=== PATIENT | female | born 2000 | race Caucasian/White ===

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

== ENCOUNTER 2021-06-15 21:29 | Emergency (ER) | payer SELFPAY ==
[2021-06-15 21:47] VITALS: BP 123/69; PULSE 91
--- NOTE | 2021-06-15 21:50 | EDM.PDOC ---
ED HPI GENERAL MEDICAL PROBLEM - General Stated Complaint: NAUSEA, PAIN WITH URINATION Time Seen by Provider: 06/15/21 21:44 Source of Information: Reports: Patient History Limitations: Reports: No Limitations - History of Present Illness INITIAL COMMENTS - FREE TEXT/NARRATIVE: 20-year-old female presenting to the ED for evaluation of dysuria. Patient was seen and treated last week for UTI and went through a 7-day course of antibiotics. She had 3 days where she was symptom-free but then started to develop symptoms 48 hours ago. She now has urgency, frequency, and burning with urination. The patient was treated with nitrofurantoin on a 7-day course. They did not do a urine culture. He denies any fever or chills but has had nausea without vomiting. She denies any flank pain. She has had no diarrhea. There is no change in appetite. There is no loss of her taste or smell. Abdomen Pain Score (Numeric/FACES): 4 - Related Data Allergies Allergy/AdvReac Type Severity Reaction Status Date / Time No Known Allergies Allergy Verified 01/18/17 21:40 Home Meds: Home Meds norgestimate-ethinyl estradioL [Sprintec] 1 tab PO DAILY 06/15/21 [History] Past Medical History - Past Surgical History HEENT Surgical History: Reports: Tonsillectomy ED ROS GENERAL - Review of Systems Review Of Systems: See Below Constitutional: Reports: Chills HEENT: Reports: No Symptoms Respiratory: Reports: No Symptoms Cardiovascular: Reports: No Symptoms Endocrine: Reports: No Symptoms GI/Abdominal: Reports: Nausea. Denies: Vomiting : Reports: Dysuria, Frequency, Urgency. Denies: Flank Pain Musculoskeletal: Reports: No Symptoms Skin: Reports: No Symptoms Neurological: Reports: No Symptoms Psychiatric: Reports: No Symptoms Hematologic/Lymphatic: Reports: No Symptoms Immunologic: Reports: No Symptoms ED EXAM, RENAL/ - Physical Exam Exam: See Below Exam Limited By: No Limitations General Appearance: Alert, No Apparent Distress Eye Exam: Bilateral Eye: EOMI, PERRL Throat/Mouth: Normal Inspection, Normal Oropharynx, Normal Voice, No Airway Compromise Head: Atraumatic, Normocephalic Neck: Normal Inspection, Supple. No: Lymphadenopathy (R), Lymphadenopathy (L) Respiratory/Chest: No Respiratory Distress, Lungs Clear, Normal Breath Sounds Cardiovascular: Normal Peripheral Pulses, Regular Rate, Rhythm, No Murmur GI/Abdominal: Normal Bowel Sounds, Soft, Non-Tender Back Exam: No: CVA Tenderness (R), CVA Tenderness (L) Extremities: Normal Inspection Neurological: Alert, Oriented, Normal Cognition, No Motor/Sensory Deficits Psychiatric: Normal Affect, Normal Mood Skin Exam: Warm, Dry Course - Vital Signs Last Recorded V/S: Last Vital Signs Temp 37.1 C 06/15/21 21:46 Pulse 91 06/15/21 21:46 Resp 16 06/15/21 21:46 BP 123/69 06/15/21 21:46 Pulse Ox 100 06/15/21 21:46 - Orders/Labs/Meds Orders: Active Orders 24 hr Category Date Time Status CULTURE URINE [RM] Stat Lab 06/15/21 21:57 Ordered Labs: Laboratory Tests 06/15/21 Range/Units 21:49 Urine Color Yellow (YELLOW) Urine Appearance Cloudy A (CLEAR) Urine pH 6.0 (5.0-8.0) Ur Specific [place] >= 1.030 (1.008-1.030) Urine Protein >=300 H (NEGATIVE) mg/dL Urine Glucose (UA) Negative (NEGATIVE) mg/dL Urine Ketones Trace H (NEGATIVE) mg/dL Urine Occult Blood Moderate H (NEGATIVE) Urine Nitrite Negative (NEGATIVE) Urine Bilirubin Negative (NEGATIVE) Urine Urobilinogen 0.2 (0.2-1.0) EU/dL Ur Leukocyte Esterase Moderate H (NEGATIVE) Urine RBC 5-10 H (0-5) Urine WBC Semi-packed H (0-5) Ur Epithelial Cells Moderate Amorphous Sediment Not seen Urine Bacteria Many Urine Mucus Not seen - Re-Assessments/Exams Free Text/Narrative Re-Assessment/Exam: 06/15/21 21:59 I reviewed the urinalysis showing usha pyuria. Urine culture has been added to ensure that we have her on the right antibiotic. As she was recently on nitrofurantoin we will probably go with cephalexin 500 mg twice daily for 10 days as she had been on a 7-day course of the nitrofurantoin and it came right back. That would indicate to me that this organism is somewhat resistant. We should have the culture back in 2 days and may need to adjust the antibiotics based on the culture and sensitivities. This was discussed with the patient who understands the plan. The cephalexin was sent out to the [employer] machine so she may start it tonight. Departure - Departure Time of Disposition: 22:01 Disposition: Home, Self-Care 01 Clinical Impression: UTI, Urinary tract infectious disease - Discharge Information Instructions: Urinary Tract Infection, Adult, [id number] Referrals: PCP,None [Primary Care Provider] - Care Plan Goals: Your labs today show that you have a very significant urinary tract infection again. As we discussed, this would indicate to me that the organism that is growing in your urine was resistant to the nitrofurantoin so we will go to a different class of antibiotics called cephalosporins starting you on Keflex 500 mg twice daily for 10 days. The reason I am going longer than the typical 5 to 7 days is because this organism is resistant and we want to make sure that we clear the infection. A urine culture is currently pending but will takes 2 to 3 days to come back at which time will identify what the bacteria is in your urine and ensure that we have you on the right antibiotic. If it seems to be resistant to the antibiotic we have you on, you will be notified and a new antibiotic will be prescribed. Sepsis Event Note (ED) - Focused Exam Vital Signs: Vital Signs Temp Pulse Resp BP Pulse Ox 06/15/21 21:46 37.1 C 91 16 123/69 100 - Problem List & Annotations (1) UTI, Urinary tract infectious disease SNOMED Code(s): 42133162 Code(s): N39.0 - URINARY TRACT INFECTION, SITE NOT SPECIFIED Status: Acute Priority: Medium Current Visit: Yes - Problem List Review Problem List Initiated/Reviewed/Updated: Yes - My Orders Last 24 Hours: My Active Orders 06/15/21 21:57 CULTURE URINE [RM] Stat - Assessment/Plan Last 24 Hours: My Active Orders 06/15/21 21:57 CULTURE URINE [RM] Stat
== END 2021-06-15 22:15 | disposition home or self-care (01) ==
LOC: JP.ED 21:29
DX: N39.0 Urinary tract infection, site not specified (principal)
CPT/HCPCS: 81001; 87086; 99283